=== PATIENT | male | born 1940 | race Caucasian/White ===

== ENCOUNTER 2025-04-12 18:42 | Emergency (ER) | payer MEDICARE, OTHER ==
[~2025-04-12] VITALS: Ht 175.3 cm; Wt 61.2 kg
[2025-04-12 18:49] VITALS: BP 104/63
[2025-04-12] MEDS ORDERED: CYAN-28 PO (18:58)
[2025-04-12] MEDS ORDERED: LOPE2TAB25 PO (18:58)
[2025-04-12] MEDS ORDERED: CHOL2000 PO (18:58)
[2025-04-12] MEDS ORDERED: SERT50TA PO (18:58)
[2025-04-12] MEDS ORDERED: MELA10TA PO (18:58)
[2025-04-12] MEDS ORDERED: CALC250T2 PO (18:58)
[2025-04-12] MEDS ORDERED: DONE5TAB34 PO (18:58)
[2025-04-12] MEDS ORDERED: MIRA25TA PO (18:58)
[2025-04-12] MEDS ORDERED: AMLO-212 PO (18:58)
[2025-04-12] MEDS ORDERED: IPRA12.9 EA NOSTRIL (18:58)
[2025-04-12] MEDS ORDERED: MEMA10TA22 PO (18:58)
[2025-04-12] MEDS ORDERED: GABA-532 PO (18:58)
[2025-04-12] MEDS ORDERED: ACET-2605 PO (18:58)
[2025-04-12] MEDS ORDERED: IV NORMAL SALINE 1000 ML BAG IV ONE (19:00)
[2025-04-12 19:14] LABS: PLATELET COUNT (AUTO) 231 K/uL (152-348); RED BLOOD CELL COUNT(AUTO) 4.34 MIL/uL (4.06-5.63); RED CELL DISTRIBUTION WIDTH 13.9 % (12.1-16.2); WHITE BLOOD COUNT (AUTO) 7.3 K/uL (3.6-10.2)
[2025-04-12 19:23] LABS: CREATININE 1.1 mg/dL (0.6-1.3); SODIUM SERUM 141 mmol/L (136-145); UREA NITROGEN, BLOOD 13 mg/dL (7-18)
[2025-04-12 19:29] LABS: ASPARTATE AMINOTRANSFERASE 18 U/L (15-37); TOTAL PROTEIN, SERUM 6.6 g/dL (6.4-8.2)
[2025-04-12] MEDS ORDERED: LOPE2CAP40 PO (20:22)
[2025-04-12 20:31] LABS: *BILIRUBIN,URIN 1+ (NEGATIVE); *BLOOD, URINE NEGATIVE (NEGATIVE); *CLARITY,URINE CLEAR (CLEAR); *COLOR,URINE YELLOW (YELLOW); *KETONES,URINE 1+ (NEGATIVE); *PROTEIN,URINE TRACE (NEGATIVE); *UROBILINOGEN,URINE 0.2 E.U./dl (NORMAL); LEUKOCYTE ESTERASE ,URINE NEGATIVE (NEGATIVE); NITRITE, URINE NEGATIVE (NEGATIVE); UGLUCOSE NEGATIVE (NEGATIVE)
[2025-04-12 20:39] LABS: SQUAMOUS EPITHELIAL CELL,UR FEW /HPF (NONE SEEN)
[2025-04-12 22:12] VITALS: BP 110/66; TEMP 98; O2SAT 98
[2025-04-12] MEDS ORDERED: KETOROLAC TROMETHAMINE 30 MG INJ IM ONE (22:15)
== END 2025-04-12 21:00 | disposition home or self-care (01) ==
LOC: ER 18:57 → EDBD 18:57 → ER 21:00
DX: R19.7 Diarrhea, unspecified (principal); F03.90 Unspecified dementia, unspecified severity, without behavioral disturbance, psychotic disturbance, mood disturbance, and anxiety; I10 Essential (primary) hypertension; I16.1 Hypertensive emergency; I49.3 Ventricular premature depolarization; N32.81 Overactive bladder; Z79.899 Other long term (current) drug therapy
CPT/HCPCS: 36415; 83605; 83690; 85025; A4606; A4663